=== PATIENT | female | born 1975 | race Caucasian/White ===

== ENCOUNTER 2023-11-28 06:54 | Outpatient (CLI) | payer OTHER | END 2023-11-28 15:04 | disposition home or self-care (01) | LOC: MRI 06:54 | PROVIDERS: ATTEND Internal Medicine Rheumatology | DX: S83.206A Unspecified tear of unspecified meniscus, current injury, right knee, initial encounter (principal); S83.231A Complex tear of medial meniscus, current injury, right knee, initial encounter | CPT/HCPCS: 73721 ==